=== PATIENT | female | born 1995 | race Caucasian/White ===

== ENCOUNTER 2020-09-16 23:17 | Outpatient (CLI) | payer MEDICAID ==
[2014-12-13 19:27] VITALS: BMI 34.0
[~2020-09-16 23:17] MED LIST: HYDROCODON-ACE1 EAC7 PO; IBUPROFEN600 MG PO; MOTRIN600 MG PO; PERCOCET 5/3251 TA1 PO; PRENATAL COMPLE1 TAB PO
[2020-09-16 23:40] LABS: BILIRUBIN NEGATIVE (NEGATIVE); KETONE NEGATIVE (NEGATIVE); NITRITE NEGATIVE (NEGATIVE); UROBILINOGEN NORMAL mg/dL (< 2)
== END 2020-09-17 09:30 | disposition home or self-care (01) ==
LOC: D.LDO 23:17 → D.LD 23:20 → D.LDO 09-17 09:30
PROVIDERS: ATTEND Student in an Organized Health Care Education/Training Program
DX: O47.9 False labor, unspecified (principal)

== ENCOUNTER 2020-09-25 08:28 | Outpatient (CLI) | payer BC ==
[2014-12-13 19:27] VITALS: BMI 34.0
== END 2020-09-25 11:38 | disposition home or self-care (01) ==
LOC: D.LDO 08:28
PROVIDERS: ATTEND Obstetrics & Gynecology
DX: O47.9 False labor, unspecified (principal)

== ENCOUNTER 2020-10-04 04:52 | Inpatient (IN) | payer BC ==
[~2020-10-04] VITALS: Ht 165.1 cm; Wt 99.8 kg
[2020-10-04 05:31] VITALS: BP 124/80; Ht 165.1 cm; Wt 99.8 kg
[2020-10-04 06:47] LABS: HEMOGLOBIN 14.6 g/dL (12-16); MCH 32.1 pg (26.0-34.0); MCV 94.5 fL (80.0-100.0); RBC 4.55 10x6/uL (4.00-5.40); RDW 12.8 % (11.5-14.5)
[2020-10-04 06:58] LABS: UDS - AMPHET NEGATIVE QUAL (NEGATIVE); UDS - BARB NEGATIVE QUAL (NEGATIVE); UDS - BENZO NEGATIVE QUAL (NEGATIVE); UDS - COCAINE NEGATIVE QUAL (NEGATIVE); UDS - OPIATE NEGATIVE QUAL (NEGATIVE); UDS - PCP NEGATIVE QUAL (NEGATIVE); UDS - THC NEGATIVE QUAL (NEGATIVE)
[2020-10-04 07:10] LABS: BACTERIA MANY HPF (NONE SEEN); BILIRUBIN NEGATIVE (NEGATIVE); KETONE NEGATIVE (NEGATIVE); NITRITE NEGATIVE (NEGATIVE); UROBILINOGEN NORMAL mg/dL (< 2)
--- NOTE | 2020-10-04 17:30 | NUR ---
ROUNDS MADE. PT LYING IN BED AWAKE WATCHING TV. PAIN AND NEEDS ASSESSED. PT DENIES PAIN AT THIS TIME. REQUEST FRESH [employer]. FRESH [employer] SERVED. NO FURTHER NEEDS VOICED. PT REPORTS HAS GONE TO GET DINNER FOR THEM.
--- NOTE | 2020-10-04 19:02 | NUR ---
bedside shift report completed at this time to assume pt care. pt , denies needs at this time.
--- NOTE | 2020-10-04 20:22 | NUR ---
patient continues to breastfeed. will come back for assessment
--- NOTE | 2020-10-04 20:22 | NUR ---
IBUPROFEN 600MG PO ADMINISTERED AT THIS TIME, SEE EMAR.
[2020-10-04 20:45] VITALS: BP 116/68
--- NOTE | 2020-10-04 20:45 | NUR ---
PATIENT CONTINUES TO BREASTFEED BUT STATES THAT SHE IS JUST ABOUT FINISHED AND IS OK WITH HAVING HER ASSESSMENT COMPLETED AT THIS TIME. SHIFT ASSESSMENT COMPLETED, SEE FLOWSHEET.
--- NOTE | 2020-10-04 22:20 | NUR ---
PATIENT SLEEPING WITH EVEN RESPIRATIONS, EASILY AROUSED TO VERBAL. NO NEEDS IDENTIFIED. IS IN OPEN CRIB AT BEDSIDE, SIGNIFICANT OTHER IS ALSO AT BEDSIDE FOR SUPPORT. WILL CONTINUE TO MONITOR.
--- NOTE | 2020-10-04 23:40 | NUR ---
PATIENT GETTING READY TO BREASTFEED, NO NEEDS IDENTIFIED. WILL CONTINUE TO MONITOR.
--- NOTE | 2020-10-05 02:19 | NUR ---
IBUPROFEN 600MG PO ADMINISTERED PER PT REQUEST FOR CRAMPING PAIN. NO FURTHER NEEDS IDENTIFIED. WILL CONTINUE TO MONITOR.
--- NOTE | 2020-10-05 04:00 | NUR ---
PT RESTING WITH EYES CLOSED, NO DISTRESS NOTED. WILL CONTINUE TO MONITOR
--- NOTE | 2020-10-05 05:45 | NUR ---
PATIENT BRESTFEEDING. PADS PROVIDED PER REQUEST. NO FURTHER NEEDS IDENTIFIED. WILL CONTINUE TO MONITOR.
--- NOTE | 2020-10-05 08:02 | NUR ---
INFANT. C/O ABD CRAMPING WITH FEEDING 10/15, MOTRIN PROVIDED. DR. BARONE AT BEDSIDE DISCUSSING POC WITH PT. PT VERBALIZES THAT SHE WILL CALL RN TO BEDSIDE FOR SHIFT ASSESSMENT FOLLOWING FEEDING. SPOUSE RESTING ON COUCH AT BEDSIDE. BED IN LOW POSITION WITH SRUP X2. CALL LIGHT AND PHONE WITHIN.
[2020-10-05 08:13] LABS: RAPID PLASMA REAGIN Non Reactive (Non Reactive)
[2020-10-05 08:42] VITALS: BP 113/69
--- NOTE | 2020-10-05 08:42 | NUR ---
SHIFT ASSESSMENT COMPLETED PER FLOWSHEET. VSS. FF, MIDLINE AND U2 WITH SMALL AMT RUBRA LOCHIA, NO CLOTS NOTED. DENIES PAIN. REPORTS THAT SHE IS VOIDING AND PASSING FLATUS WITHOUT DIFFICULTY. POC DISCUSSED, VERBALIZES UNDERSTANDING AND DENIES QUESTIONS. R HAND SL PIV D/C'D WITH TIP INTACT. SPOUSE AT BEDSIDE, SUPPORTIVE AND ATTENTIVE TO PT AND NEEDS. BED IN LOW POSITION WITH SRUP X2. CALL LIGHT AND PHONE WITHIN REACH.
--- NOTE | 2020-10-05 09:51 | NUR ---
ROUNDS MADE. CONVERSING ON CELL PHONE. DENIES PAIN AND NEEDS. BED IN LOW POSITION WITH SRUP X2. CALL LIGHT AND PHONE WITHIN REACH. WILL CONTINUE TO MONITOR.
--- NOTE | 2020-10-05 10:26 | NUR ---
ICE WATER AND SPRITE PROVIDED. CARING FOR INFANT. DENIES PAIN AND NEEDS AT THIS TIME. BED IN LOW POSITION WITH SRUP X2. CALL LIGHT AND PHONE WITHIN REACH.
--- NOTE | 2020-10-05 11:35 | NUR ---
TOWELS PROVIDED. UP TO SHOWER, REFUSES LINEN CHANGE. STATES THAT SHE WILL BE GOING HOME THIS AFTERNOON. VERBALIZES UNDERSTANDING OF BR CALL LIGHT USE. SPOUSE REMAINS IN ROOM, SUPPORTIVE AND ATTENTIVE TO PT AND INFANT.
[2020-10-05] MEDS ORDERED: IBUPROFEN600 MG PO (12:47)
[2020-10-05] MEDS ORDERED: HYDROCODON-ACE1 EAC7 PO (12:47)
--- NOTE | 2020-10-05 12:47 | NUR ---
OUT OF SHOWER. ICE WATER PROVIDED. DENIES PAIN AND ADDITIONAL NEEDS. CONVERSING WITH SPOUSE AND BONDING WITH INFANT. BED IN LOW POSITION WITH SRUPX2. CALL LIGHT AND PHONE WITHIN REACH.
--- NOTE | 2020-10-05 14:48 | NUR ---
VERBAL AND WRITTEN D/C INSTRUCTIONS GIVEN TO PT AND SPOUSE, BOTH VERBALIZE UNDERSTANDING AND DENY QUESTIONS. DENIES PAIN AND NEEDS. COPIES OF [facility] PP CARE INSTRUCTIONS, SAVE YOUR LIFE HANDOUT, AND [employer] HANDOUT GIVEN. PRESCRIPTION ALSO GIVEN. PT UP TO DRESS.
--- NOTE | 2020-10-05 15:45 | NUR ---
DESHAWN GOODMAN AT BEDSIDE REVIEWING D/C TEACHING.
== END 2020-10-05 16:15 | disposition home or self-care (01) | DRG 807 ==
LOC: D.LD 04:52
PROVIDERS: ADMIT Obstetrics & Gynecology; ATTEND Obstetrics & Gynecology
PROC: 10E0XZZ Delivery of Products of Conception, External Approach (ICD-10-PCS; principal; 2020-10-04)
PROC: 10907ZC Drainage of Amniotic Fluid, Therapeutic from Products of Conception, Via Natural or Artificial Opening (ICD-10-PCS; 2020-10-04)
PROC: 3E033VJ Introduction of Other Hormone into Peripheral Vein, Percutaneous Approach (ICD-10-PCS; 2020-10-04)
DX: O99.824 Streptococcus B carrier state complicating childbirth (principal); Z37.0 Single live birth; Z3A.38 38 weeks gestation of pregnancy

== ENCOUNTER 2020-12-16 07:00 | Day surgery (SDC) | payer BC ==
[2020-12-13 10:23] LABS: BASOPHILS 0.7 % (0-2); EOSINOPHILS 2.2 % (0-7); HEMATOCRIT 43.1 % (36.0-48.0); HEMOGLOBIN 14.6 g/dL (12-16); LYMPHOCYTES 31.4 % (15-50); MCH 31.9 pg (26.0-34.0); MEAN PLATELET VOLUME 8.5 fL (7.4-10.4); NEUTROPHILS 58.7 % (40-80); RBC 4.58 10x6/uL (4.00-5.40); RDW 12.8 % (11.5-14.5); WBC 7.1 10x3/uL (4.8-10.8)
[2020-12-13 11:20] LABS: PLATELET COUNT 283 10x3/uL (130-400)
[~2020-12-16] VITALS: Ht 165.1 cm; Wt 93.4 kg
[2020-12-16 07:33] VITALS: BP 113/70; Ht 165.1 cm; Wt 93.4 kg
[2020-12-16 07:50] LABS: HCG URINE NEGATIVE (NEGATIVE)
--- NOTE | 2020-12-16 15:00 | NUR ---
1225 ASSISTED TO BATHROOM VOIDED X1 1255 IV REMOVED AND INSTRUCTIONS GIVEN.
--- NOTE | 2020-12-26 15:56 | OP ---
PATIENT NAME: JUDITH LUKE MEDICAL RECORD: [id number] :89 LOCATION:[facility] ADMISSION DATE: SURGEON: JUSTINA LERMA MD DATE OF OPERATION: 12/16/2020 PREOPERATIVE DIAGNOSES: Multiparity, the patient desires permanent sterility. POSTOPERATIVE DIAGNOSIS: Multiparity, the patient desires permanent sterility. PROCEDURE: Laparoscopic tubal ligation via bipolar cautery. SURGEON: Justina Lerma MD ANESTHESIA: General endotracheal. INTRAVENOUS FLUIDS: Per anesthesia record. FINDINGS: Grossly normal-appearing uterus, fallopian tubes, and ovaries. SPECIMENS: None. COMPLICATIONS: None. IV FLUIDS: Per anesthesia record. ESTIMATED BLOOD LOSS: Minimal. COMPLICATIONS: None apparent. DESCRIPTION OF PROCEDURE: The patient was taken to the operating room where general anesthesia was achieved without difficulty. The patient was then prepped and draped in normal sterile fashion in the dorsal lithotomy position in the [facility]. Her bladder was drained of approximately 50 cc of straw colored urine and a sponge stick was placed into the vagina for uterine elevation. At this point, the patient was prepped and draped. A 5-mm incision was made infraumbilically. A 5 mm bladeless trocar was used to enter the intraperitoneal space under direct visualization of the laparoscope. The introducer was removed and opening pressure was found to be less than 8 mmHg. The scope was then placed into the port and intraperitoneal placement was confirmed visually. A second port was placed approximately 5 cm above the pubic symphysis in the midline, making a 5-mm incision in this area using the 11 blade and a 5 mm bladeless trocar was used to enter the intraperitoneal space under direct visualization of laparoscope. At this point, the fallopian tubes were identified and the bipolar Kleppinger paddles were used to completely desiccate approximately 5 cm of the midportion of the fallopian tubes bilaterally. Good hemostasis was noted from the surgical sites and even partially desufflated and hemostasis was again noted. The patient was then fully desufflated and the trocars were removed and the skin was repaired with 3-0 Monocryl in an interrupted fashion. The sponge stick was removed from the vagina. The patient tolerated the procedure well and was transported to postanesthesia recovery stable without incident. TRANSINT:[id number] Voice Confirmation ID: [id number] DOCUMENT ID: [id number] OPERATIVE REPORT [id number] JUDITH LUKE, JUSTINA Borges MD at 1556 CC: [id number] DICTATION DATE: 12/26/20 0333 MANAGER OF SUSTAINABILITY: 12/26/20 0727 [facility] 12/16/20 [place] [id number] [place] [id number]
== END 2020-12-16 13:20 | disposition home or self-care (01) ==
LOC: D.OPS 07:00
PROVIDERS: ATTEND Obstetrics & Gynecology
DX: Z30.2 Encounter for sterilization (principal); Z64.1 Problems related to multiparity